=== PATIENT | female | born 1940 | race Caucasian/White ===

== ENCOUNTER 2016-06-09 09:48 | Inpatient (IN) | payer OTHER ==
--- NOTE | 2016-06-09 10:41 | PROVIDER DOCUMENTATION ---
HPI-Abdominal Pain/GI Problem - General Chief Complaint: Rectal Bleeding Stated Complaint: GI COMPLAINT Time Seen by Provider: 06/09/16 10:14 Source: patient, family () Allergies/Adverse Reactions: Patient Allergies Allergy/AdvReac Type Severity Reaction Status Date / Time meperidine HCl * Allergy "uncooperat Verified 06/09/16 10:07 [From Demerol] deborah" Home Medications: Amitriptyline [Elavil] 50 mg PO HS 06/09/16 Aspirin [Aspirin EC] 81 mg PO DAILY 06/09/16 Cyclobenzaprine [Flexeril] 10 mg PO QHS 06/09/16 Donepezil [Aricept] 10 mg PO DAILY 06/09/16 Estrogens, Conjugated [Premarin] 1.25 mg PO DAILY 06/09/16 Iron Carbonyl/Vit C/Vit B12/FA [Icar-C Plus] 1 each PO DAILY 06/09/16 Levothyroxine Sodium 25 mcg PO DAILY 06/09/16 Losartan [Cozaar] 50 mg PO DAILY 06/09/16 Memantine HCl [Namenda Xr] 28 mg PO DAILY 06/09/16 Metoprolol Succinate 50 mg PO DAILY 06/09/16 Potassium Chloride [Klor-Con M20] 20 meq PO BID 06/09/16 Triamterene/Hctz [Maxzide 75/50] 0.5 each PO DAILY 06/09/16 Warfarin Sodium 5 mg PO DIRECTED 06/09/16 Warfarin Sodium 7.5 mg PO DIRECTED 06/09/16 - History of Present Illness-ABD Nature of Presenting Problems: Pt is 76 y/o F presents to the ED with black tarry stool. Pt states the change in stool started yesterday. Pt states she has not had stool like this in years and she states the stool were due to bleeding ulcers. Pt denies F. Pt states having N but no V or D. Pt's states Pt being constipated and taking some Milk of Mag yesterday. Abdominal Pain Onset Location: reports: generalized abdomen Pain Radiation: reports: no radiation Quality of Pain: reports: aching Severity in ED: reports: mild Onset/Duration: reports: 24 hours ago Timing: reports: still present, intermittent Activities at Onset: reports: light activity Exposure to sick contacts?: No Modifying Factors: improves with: nothing Associated Symptoms: reports: constipation, headaches, loss of appetite, nausea , weakness. denies: anxiety, arm pain, back/neck pain, chest pain, cough, diaphoresis, diarrhea, dizziness, EENT symptoms, fatigue, fever/chills, genitourinary problems, heartburn, joint pain, malaise, muscle aches, sinus congestion/drainage, rash, seizure, shortness of breath, sensory/motor loss, pain with inspiration, swelling/mass in abdomen, syncope, vomiting, trouble walking, other Last BM: this morning Dark Stools Present?: reports: black, tarry Rectal Bleeding: reports: other (unsure) Rectal Pain: reports: none Emesis Description: reports: none Bruising or Bleeding Gums?: No Similar Symptoms Previously?: Yes Recently seen or treated by another doctor?: No Review of Systems - Adult - REVIEW OF SYSTEMS - ADULT Constitutional: denies: chills, fever Eyes: denies: decreased vision, blurred vision, double vision Ears, Nose, Mouth & Throat: denies: ear pain, nose pain, throat pain Cardiovascular: denies: chest pain, heart murmur, irregular heart rate Respiratory: denies: cough, shortness of breath, wheezing Gastrointestinal: reports: abdominal pain (generalized), constipation, nausea. denies: diarrhea, vomiting Genitourinary: denies: dysuria, hematuria Musculoskeletal: denies: bone pain, joint pain, neck pain Integumentary: denies: hives, itching Neurological: reports: headache/migraines (HORTA). denies: dizziness/vertigo Psychiatric: reports: no symptoms reported Endocrine: reports: no symptoms reported Hematologic/Lymphatic: reports: no symptoms reported Allergic/Immunologic: reports: no symptoms reported All Other Systems: Reviewed and Negative Past History - Adult - PAST MEDICAL HISTORY-ADULT Review of Records: reports: Nursing Assessment Review, Medications Reviewed, Social history reviewed & non-contributory. Major Childhood Illnesses: reports: denies history Cardiovascular: reports: A-Fib, HTN Respiratory: reports: denies history Gastrointestinal: reports: denies history Obstetrical/Gynecological: reports: denies history Genitourinary: reports: denies history Musculoskeletal: reports: denies history Neurological: reports: denies history Endocrine/Immune: reports: thyroid disorder Other Conditions: reports: denies history - PRIOR SURGERIES/PROCEDURES Surgical/Procedure History: reports: CABG, hysterectomy, , tonsillectomy, hernia repair - IMMUNIZATION STATUS Childhood Immunizations: See Nurse Assessment Flu Vaccine: See Nurse Assessment - FAMILY HISTORY Family History: reviewed, not pertinent - SOCIAL HISTORY Smoking: quit greater than 1 year, cigarettes Provider spent 3-5 mins advising pt. on dangers of tobacco.: Discussed manners to quit use, and f/u contacts for add'l counseling. Substance Use: alcohol Alcohol Use Frequency: rarely Number of drinks per typical drinking period:: 2 drinks Living Situation: family Physical Exam-General - PHYSICAL EXAM-ADULT Initial Vital Signs Reviewed: Yes - CONSTITUTIONAL General Appearance: appears well, alert, no apparent distress - EYES Eyes: PERRL/EOMI, pink conjunctivae - HEAD, EARS, NOSE, MOUTH & THROAT HENMT: normocephalic/atraumatic, normal ENT inspection. negative: moist mucous membranes (dry) - NECK Neck: non-tender, full range of motion, supple, normal inspection - RESPIRATORY Respiratory: chest non-tender, lungs clear, normal breath sounds - CARDIOVASCULAR Cardiovascular: normal peripheral pulses, regular rate, rhythm, no edema - GASTROINTESTINAL (ABDOMEN) Abdominal Exam: normal bowel sounds, non tender, soft - LYMPHATIC Lymphatic: no adenopathy - MUSCULOSKELETAL Back Exam: normal inspection, no CVA tenderness, no vertebral tenderness Extremity: normal range of motion, non-tender, normal gait - SKIN Integumentary: normal color, normal turgor, warm/dry - NEUROLOGIC Neurologic: public information coordinator II-XII nml as tested, grossly normal, no motor/sensory deficits - PSYCHIATRIC Psych/Mental Status: normal mood/affect, normal thought content, normal thought process, oriented x 3 Progress - PLAN OF CARE/RESULTS Progress/Plan/Lab Results: Orders Category Date Time Status Cardiac Monitoring DIRECTED Care 06/09/16 10:29 Active Saline Loc NOW Care 06/09/16 10:29 Active CHEST-2 VIEWS [RAD] Stat Exams 06/09/16 10:[address] ABD/PELVIS W/ IV CONT ONLY [CT] Stat Exams 06/09/16 10:32 Ordered AMYLASE [CHEM] Stat Lab 06/09/16 10:30 Uncollected CBC WITH ELECTRONIC DIFF [HEME] Stat Lab 06/09/16 10:35 Ordered CK PROFILE [SP CHEM] Stat Lab 06/09/16 10:35 Ordered COMPREHENSIVE METABOLIC PANEL [CHEM] Stat Lab 06/09/16 10:35 Ordered D-DIMER [CHEM] Stat Lab 06/09/16 10:35 Ordered LIPASE [CHEM] Stat Lab 06/09/16 10:30 Uncollected MAGNESIUM [CHEM] Stat Lab 06/09/16 10:35 Ordered PRO B-NATRIURETIC PEPTIDE Stat Lab 06/09/16 10:29 Uncollected PROTIME WITH INR [COAG] Stat Lab 06/09/16 10:29 Uncollected PTT [COAG] Stat Lab 06/09/16 10:29 Uncollected TROPONIN T Stat Lab 06/09/16 10:29 Uncollected URINALYSIS W/POSS RFLX CULT [URINALYSIS] Stat Lab 06/09/16 10:30 Uncollected EKG [EKG] Stat Ther 06/09/16 10:29 Ordered Vital Signs - 24 hr 06/09/16 09:55 Temperature 98.2 F Pulse Rate 97 H Respiratory 18 Rate Blood Pressure 148/82 O2 Sat by Pulse 99 Oximetry Laboratory Tests 06/09/16 06/09/16 06/09/16 10:35 10:35 10:35 WBC 11.78 H RBC 4.51 Hgb 14.2 Hct 42.0 MCV 93.1 MCH 31.5 H MCHC 33.8 RDW Std Deviation 13.1 Plt Count 227 MPV 11.3 H Immature Gran % (Auto) 0.3 Neut % (Auto) 76.5 H Lymph % (Auto) 11.8 L [place] % (Auto) 10.4 H Eos % (Auto) 0.7 Baso % (Auto) 0.3 Immature Gran # (Auto) 0.03 Neut # 9.02 H Lymph # 1.39 [place] # 1.23 H Eos # 0.08 Baso # 0.03 D-Dimer 3.87 H Sodium 131 L Potassium 5.8 H Chloride 91 L Carbon Dioxide 25 Anion Gap 15 BUN 14 Creatinine 1.1 H Estimated GFR/1.73 m2 49 BUN/Creatinine Ratio 13 Glucose 116 H Calculated Osmolality 264 Calcium 9.4 Magnesium 2.5 Total Bilirubin 0.43 AST 45 H ALT 22 Alkaline Phosphatase 62 Creatine Kinase 60 Troponin T [id number]-Grkjzruxxjt Pept Total Protein 7.6 Albumin 3.8 Globulin 3.8 Albumin/Globulin Ratio 1.0 Amylase 14 L Lipase 17 06/09/16 06/09/16 10:35 10:35 WBC RBC Hgb Hct MCV MCH MCHC RDW Std Deviation Plt Count MPV Immature Gran % (Auto) Neut % (Auto) Lymph % (Auto) [place] % (Auto) Eos % (Auto) Baso % (Auto) Immature Gran # (Auto) Neut # Lymph # [place] # Eos # Baso # D-Dimer Sodium Potassium Chloride Carbon Dioxide Anion Gap BUN Creatinine Estimated GFR/1.73 m2 BUN/Creatinine Ratio Glucose Calculated Osmolality Calcium Magnesium Total Bilirubin AST ALT Alkaline Phosphatase Creatine Kinase Troponin T < 0.010 [id number]-Eoticliwepv Pept 229 Total Protein Albumin Globulin Albumin/Globulin Ratio Amylase Lipase Laboratory Tests 06/09/16 06/09/16 06/09/16 10:35 10:35 10:35 WBC 11.78 H RBC 4.51 Hgb 14.2 Hct 42.0 MCV 93.1 MCH 31.5 H MCHC 33.8 RDW Std Deviation 13.1 Plt Count 227 MPV 11.3 H Immature Gran % (Auto) 0.3 Neut % (Auto) 76.5 H Lymph % (Auto) 11.8 L [place] % (Auto) 10.4 H Eos % (Auto) 0.7 Baso % (Auto) 0.3 Immature Gran # (Auto) 0.03 Neut # 9.02 H Lymph # 1.39 [place]oup # 1.23 H Eos # 0.08 Baso # 0.03 PT INR PTT (Actin FS) D-Dimer 3.87 H Sodium 131 L Potassium 5.8 H Chloride 91 L Carbon Dioxide 25 Anion Gap 15 BUN 14 Creatinine 1.1 H Estimated GFR/1.73 m2 49 BUN/Creatinine Ratio 13 Glucose 116 H Calculated Osmolality 264 Calcium 9.4 Magnesium 2.5 Total Bilirubin 0.43 AST 45 H ALT 22 Alkaline Phosphatase 62 Creatine Kinase 60 Troponin T [id number]-L-Tplhayhzzrc Pept Total Protein 7.6 Albumin 3.8 Globulin 3.8 Albumin/Globulin Ratio 1.0 Amylase 14 L Lipase 17 Urine Source Urine Color Urine Turbidity Urine pH Ur Specific [place] Urine Protein Ur Glucose (Stick) Ur Ketones (Stick) Urine Blood Urine Nitrite Urine Bilirubin Urobilinogen Dipstick Urine Leukocytes Urine WBC (Auto) Urine RBC (Auto) U Epithel Cells (Auto) Urine Bacteria (Auto) 06/09/16 06/09/16 06/09/16 10:35 10:35 10:35 WBC RBC Hgb Hct MCV MCH MCHC RDW Std Deviation Plt Count MPV Immature Gran % (Auto) Neut % (Auto) Lymph % (Auto) [place] % (Auto) Eos % (Auto) Baso % (Auto) Immature Gran # (Auto) Neut # Lymph # [place] # Eos # Baso # PT 68.5 H INR 6.34 H* PTT (Actin FS) 41.4 H D-Dimer Sodium Potassium Chloride Carbon Dioxide Anion Gap BUN Creatinine Estimated GFR/1.73 m2 BUN/Creatinine Ratio Glucose Calculated Osmolality Calcium Magnesium Total Bilirubin AST ALT Alkaline Phosphatase Creatine Kinase Troponin T < 0.010 Bli-A-Moonfubnpnf Pept 229 Total Protein Albumin Globulin Albumin/Globulin Ratio Amylase Lipase Urine Source Urine Color Urine Turbidity Urine pH Ur Specific [place] Urine Protein Ur Glucose (Stick) Ur Ketones (Stick) Urine Blood Urine Nitrite Urine Bilirubin Urobilinogen Dipstick Urine Leukocytes Urine WBC (Auto) Urine RBC (Auto) U Epithel Cells (Auto) Urine Bacteria (Auto) 06/09/16 11:50 WBC RBC Hgb Hct MCV MCH MCHC RDW Std Deviation Plt Count MPV Immature Gran % (Auto) Neut % (Auto) Lymph % (Auto) [place] % (Auto) Eos % (Auto) Baso % (Auto) Immature Gran # (Auto) Neut # Lymph # [place] # Eos # Baso # PT INR PTT (Actin FS) D-Dimer Sodium Potassium Chloride Carbon Dioxide Anion Gap BUN Creatinine Estimated GFR/1.73 m2 BUN/Creatinine Ratio Glucose Calculated Osmolality Calcium Magnesium Total Bilirubin AST ALT Alkaline Phosphatase Creatine Kinase Troponin T Gwd-H-Bjmhdqonzyo Pept Total Protein Albumin Globulin Albumin/Globulin Ratio Amylase Lipase Urine Source CLEAN CATCH Urine Color YELLOW Urine Turbidity HAZY Urine pH 8.0 Ur Specific [place] 1.013 Urine Protein TRACE A Ur Glucose (Stick) NEGATIVE Ur Ketones (Stick) NEGATIVE Urine Blood MODERATE A Urine Nitrite NEGATIVE Urine Bilirubin NEGATIVE Urobilinogen Dipstick NORMAL Urine Leukocytes SMALL A Urine WBC (Auto) <10 Urine RBC (Auto) TNTC A U Epithel Cells (Auto) <10 Urine Bacteria (Auto) 2+ - EKG 1 Time of EKG reading by physician:: 10:56 EKG Read and Signed by:: Sofía Lu EKG Interpretation (*Must complete 3 of following elements*): Normal Rate: 84 Rhythm: normal sinus rhythm Comments: normal ECG - CT/MRI 1 CT Study: Abdomen, Pelvis Impression: Abnormal CT Results: fecal impaction. distal thoracic aortic graft. Departure - Departure Time of Disposition Order: 12:12 DIAGNOSIS: Upper GI bleed, Coagulopathy Disposition: ADMITTED INPATIENT 09 Certified Medical Emergency: Emergent Condition: Stable Additional Instructions: ED Follow Up Instructions: You have been treated by a care provider in the Emergency Department. These instructions are being provided to you so you can have an understanding of how to care for yourself upon discharge. Upon discharge from the Emergency Department, you are responsible for making arrangements for follow-up care by a physician of your choice. Take all prescribed medications as directed. Return to the Emergency Department immediately for any new or worsening symptoms. You may call the Physician Referral phone number at [phone] to obtain a list of Physicians who are taking new patients. Referrals: Sandra Hendricks MD [Primary Care Provider] - Attestation - Scribe Verification/Attestation Scribe:: Kathy Hernandez Acting as Scribe for:: Choco Stephenson Scribe documention review:: This chart was documented by a scribe and accurately reflects the service the provider performed and the decisions made by the provider.
[2016-06-09 10:49] LABS: MANUAL DIFF NEEDED? NO
[2016-06-09 10:52] LABS: BASO% 0.3 % (0.0-0.8); EOS# 0.08 X1000 (0.0-0.7); EOS% 0.7 % (0.0-10.0); HEMOGLOBIN 14.2 g/dL (12.0-16.0); IMM GRAN# 0.03 X1000 (0.0-0.04); IMM GRAN% 0.3 % (0.0-0.5); LYMPH# 1.39 X1000 (1.2-3.4); LYMPH% 11.8 % (20.5-51.1); MCH 31.5 PG (27-31); MCHC 33.8 g/dL (33-37); MCV 93.1 FL (81-99); MONO# 1.23 X1000 (0.11-0.59); MONO% 10.4 % (1.7-9.3); MPV 11.3 FL (7.4-10.4); NEUT% 76.5 % (42.2-75.2); PLT 227 X1000 (130-400); RBC 4.51 XMIL (4.2-5.4)
[2016-06-09 11:22] LABS: ALBUMIN 3.8 g/dL (3.5-5.0); CALCIUM 9.4 mg/dL (8.8-10.2); MAGNESIUM 2.5 mg/dL (1.5-2.7); POTASSIUM 5.8 mmol/L (3.5-5.1); TOTAL BILIRUBIN 0.43 mg/dL (0.20-1.00); TOTAL PROTEIN 7.6 g/dL (6.3-8.3)
[2016-06-09 11:36] LABS: PROTIME 68.5 Seconds (9.2-11.7)
[2016-06-09 11:37] LABS: INR 6.34; PTT 41.4 Seconds (22.0-36.0)
[2016-06-09 12:03] LABS: URINE MICRO REVIEW NEEDED? NO; URINE SOURCE CLEAN CATCH
[2016-06-09 12:07] LABS: BILIRUBIN URINE NEGATIVE (NEGATIVE); BLOOD URINE MODERATE (NEGATIVE); COLOR YELLOW; GLUCOSE URINE NEGATIVE (NEGATIVE); LEUKOCYTES URINE SMALL (NEGATIVE); NITRITE URINE NEGATIVE (NEGATIVE); PROTEIN URINE TRACE mg/dL (NEGATIVE); SP GRAVITY URINE 1.013; TURBIDITY URINE HAZY (CLEAR); UROBILINOGEN URINE NORMAL (NORMAL)
[2016-06-09 12:08] LABS: UR EPITHELIAL CELLS <10 /HPF (<10); URINE BACTERIA 2+ /HPF; URINE CULTURE NEEDED? YES; URINE RBC TNTC /HPF (<10); URINE WBC <10 /HPF (<10)
[2016-06-09] MEDS ORDERED: NS 1,000 ML IV ONE (12:14)
[2016-06-09] MEDS ORDERED: PROTONIX IV ONE (12:14)
[2016-06-09] MEDS ORDERED: SODIUM CHLORIDE 0.9% INJ ONE (12:14)
[2016-06-09] MEDS ORDERED: ZOFRAN IV PRN (13:37)
[2016-06-09] MEDS ORDERED: TYLENOL PO PRN (13:37)
[2016-06-09] MEDS: NS 1,000 ML IV SCH (15:19)
--- NOTE | 2016-06-09 15:42 | Diag Imaging Result Document ---
PROCEDURE NAME: ABDOMEN/PELVIS W/O CONTRAST - 06/09/2016 CT UROGRAM WITHOUT CONTRAST: FINDINGS: The visualized portions of the lungs are unremarkable. There is a graft in the visible portions of the thoracic aorta which terminates above the level of the celiac artery. The graft is directly posterior to the distal esophagus. The pancreas is unremarkable. The kidneys are lobulated and the left somewhat atrophic in appearance. There is no evidence of hydronephrosis, mass or stones. The appendix is normal in appearance. The bladder is somewhat distended. There is a large amount of stool in the rectum. There is degenerative change in the symphysis pubis. There has been fusion in the lower lumbar spine. IMPRESSION: 1. Thoracic aortic graft. 2. Fecal impaction. 3. There may be some degree of urinary retention in the bladder as well.
--- NOTE | 2016-06-09 17:05 | HISTORY AND PHYSICAL ---
HISTORY OF PRESENT ILLNESS: This is a 76-year-old patient who has a family practice physician who has past medical history of chronic atrial fibrillation. She has had ablation procedure. She has a median sternotomy scar, so I am assuming she has had bypass, although she was not sure about that. She has had stomach surgery years ago, pyeloplasty with vagotomy, she has been treated for hypertension and hypercholesterolemia. She says she has been told she had some mild dementia. who was at the bedside. I can see in the past that she has had a carotid study done in February 2016, which was unremarkable. She had a knee x-ray in January, osteoarthritis, synovial osteochondromatosis. She had a head CT done in October without contrast, chronic-appearing white matter changes, but no evidence of acute pathology. She had a bone scan done in 06/05/2015, increased activity in multiple joints, nothing specific. 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 Echocardiogram done in August 2014 showed normal left ventricle, ejection fraction 55-60%. No valvular dysfunction. There is a central mitral regurgitation, anterior directed raising a concern for mild degree of prolapse of the posterior leaflet. Otherwise, unremarkable. She had a myocardial perfusion scan done in November 2012. Normal homogeneous uptake of radiotracer. No evidence of ischemia or infarction. Ejection fraction at that time calculated at 68%. She had a pulmonary function test done in November 2012. FVC was within normal range. Diffusion capacity within normal range. No post bronchial dilatation performed on study and noted to be good steady. She presents today. She had a dark stool last night I believe and then another one early this morning and then some loose dark stool described as black. She had a little bit of cramping in the left lower quadrant, but she has not had abdominal pain. She has not had fever or chills. No change in her diet recently. No weight loss or gain. She has felt normal and she did in questioning describe a little more reflux and burning sensation in the epigastrium and up into her esophagus some over the last week. LABORATORY: Her ProTime was elevated. She is on chronic Coumadin for her atrial fibrillation. PT was 68, INR was 6.34, PTT was 41. D-dimer 3.87. FAMILY HISTORY: Both her mother and father had apparently abdominal aortic aneurysms. I did not appreciate any pulsatile mass on exam. SOCIAL HISTORY: She quit smoking 10 years ago. Negative for alcohol. She is , four children. Used to live in [place]. was at the bedside. REVIEW OF SYSTEMS: General: No weight gain or loss. No fever or chills. HEENT: Unremarkable. Respiratory: No increased work of breathing or dyspnea. Cardiovascular: No chest pain or tachy palpitation. GI/: As above. No gross hematuria. No dysuria. Musculoskeletal/Neurologic: No focal changes. Endocrinologic/Hematologic: She does take thyroid supplement, but she is not aware of any problems in the past. PHYSICAL EXAMINATION: VITAL SIGNS: Alert and oriented, pleasant, oriented x3. Temperature is 98.2 degrees, pulse 97, respirations 18, blood pressure 148/82. HEENT: Pupils were equal and round. CVP less than 6 cm. Conjunctivae pink, good color, no pallor. Gingiva with good color, no pallor. LUNGS: Clear in all lung marie. CARDIOVASCULAR: Regular rhythm and rate without murmur or S3. ABDOMEN: Soft, nontender. No tenderness in any of the quadrants. No epigastric tenderness. No hepatojugular reflux. No hepatosplenomegaly. EXTREMITIES: Without clubbing, cyanosis, or edema. Weight is 190 pounds. She is 5 feet tall. LABORATORY: White count 11,780, hematocrit 42, platelet count 227,000. Neutrophils 76%. Sodium 131, potassium 5.8, chloride 91, bicarb 25, BUN 14, creatinine 1.1, blood sugar 116, magnesium 2.5, amylase was 14, lipase 17. Urine: Too numerous to count red blood cells. This was a clean- catch and I believe 2+ bacteria. LIST OF HOME MEDICINES: Elavil 50 mg at bedtime, aspirin 81 mg a day, Flexeril 10 mg at bedtime, Aricept 10 mg daily, Premarin 1.25 mg that is conjugated daily, iron carbonyl 1 daily, levothyroxine 25 mcg a day, Cozaar 50 mg a day, Namenda XL 20 mg p.o. daily, metoprolol succinate 50 mg daily, Klor-Con M20, 20 mEq b.i.d., Maxzide she takes half a tablet, 75-50 half a tablet daily, and Coumadin she takes 5 mg alternating with 7.5 over the course of the week. Apparently just had her ProTime checked a month ago. It was about 3.1 by 's memory. ASSESSMENT AND PLAN: 1. Gastrointestinal bleed. Suspect upper by the nature of the color, but she is taking iron as well. She has not had a colonoscopy a long time. She has a history of a stomach surgery for her ulcer that was back in the 60s. I think it sounds like a pyloroplasty and vagotomy. We will put her on a proton pump inhibitor. We are going to obviously hold the Coumadin. I will give her 1 unit of fresh frozen and consult gastrointestinal, Dr. Way to see about esophagogastroduodenoscopy and colonoscopy on her. We will also put her on some Carafate. 2. Atrial fibrillation. Rate is controlled. Continue her present medications, except holding the Coumadin. 3. Cognitive decline, early dementia has been diagnosed. Continue her current medicines. 4. History of hypertension, we will monitor that. 5. Family history of abdominal aortic aneurysm. I do not see any evidence of aortic aneurysm, but we will get an abdominal ultrasound and look at that while she is here. 6. Lastly, history of hypothyroidism. Check T4 and thyroid stimulating hormones. Continue her levothyroxine 25 mcg daily.
--- NOTE | 2016-06-09 17:35 | Diag Imaging Result Document ---
PROCEDURE NAME: CHEST-2 VIEWS - 06/09/2016 TWO VIEWS OF THE CHEST: FINDINGS: There is a thoracic aortic graft extending from the ascending through the lower portion of the descending thoracic aorta. There are sternotomy wires. There are anchors in the humeral head. IMPRESSION: Graft in the thoracic aorta, otherwise no significant change since 12/10/2011.
[2016-06-09] MEDS: CARAFATE LIQUID PO SCH (23:27)
[2016-06-09] MEDS: ELAVIL PO SCH (23:27)
[2016-06-09] MEDS: FLEXERIL PO SCH (23:27)
[2016-06-10] MEDS: CARAFATE LIQUID PO SCH ×5 (04:04→21:15)
[2016-06-10] MEDS: PROTONIX IV SCH ×2 (04:04→14:43)
--- NOTE | 2016-06-10 05:58 | CONSULTATION ---
DATE OF CONSULTATION: 06/09/2016 REFERRING PHYSICIAN: Jose Sepulveda MD. PRIMARY CARE PHYSICIAN: Sandra Hendricks MD. PRIMARY ELECTRIC TRUCKER: Jorge Villalobos MD. INDICATION FOR CONSULTATION: 1. Melena. 2. Coumadin toxicity. 3. Left lower quadrant pain. HISTORY OF PRESENT ILLNESS: The patient is a 76-year-old white female who is on Coumadin for chronic atrial fibrillation. She has a history of peptic ulcer disease and is status post a pyloroplasty with vagotomy. She states that she was in her usual state of health until approximately 1 week ago. She developed increasing heartburn and indigestion. She noted some mild epigastric discomfort but dismissed it as being benign. Approximately 24 hours prior to admission, she developed dark stools and left lower quadrant cramping. She presented to the emergency room for evaluation and was found to have an INR of 6.34 with melenic stools. The patient is also currently on iron for anemia. She states that she has had slightly darker stools since she began iron therapy but her stools became black prior to admission, which is new. We were asked to evaluate the patient. Of note, she reports that her last colonoscopy was more than 5 years ago. According to the consultation, we were asked to consider an EGD and colonoscopy. PAST MEDICAL HISTORY: 1. Atrial fibrillation. 2. Peptic ulcer disease. 3. Hypertension. 4. Hyperlipidemia. 5. Possible dementia. 6. Osteoarthritis. 7. Osteochondromatosis. 8. Inflammatory arthritis. 9. Mitral regurgitation. 10. Obesity. PAST SURGICAL HISTORY: 1. There is a sternotomy scar present, suggesting that she has had coronary artery bypass surgery. 2. Gastric surgery with a pyloroplasty and a vagotomy. SOCIAL HISTORY: The patient denies alcohol use. She previously smoked 2 packs per day for approximately 50 years. She stopped smoking 10 years ago. She is with 4 adult children. There is no history of recreational drug use. FAMILY HISTORY: Positive for abdominal aortic aneurysm. She denies a history of colon cancer. REVIEW OF SYSTEMS: Remarkable for the melenic stools. She denies other symptoms at present. She notes that the abdominal cramping has resolved since admission. PHYSICAL EXAMINATION: General: On examination, she is in no acute distress. Vital Signs: Her blood pressure is 144/73, pulse of 86, respirations 17, temperature of 98 degrees. HEENT: Negative for jaundice. Her conjunctivae are pale. Her oropharyngeal mucosal membranes are unremarkable. Pulmonary Examination: Lungs are clear. Chest: She does have a sternotomy scar on the anterior chest wall. Cardiovascular Examination: Reveals regular rate and rhythm with no gallops, murmurs, or rubs. Abdominal Examination: Reveals normoactive bowel sounds. The abdomen is soft and nontender with central adiposity. Extremities: Bilaterally are negative for cyanosis, clubbing, or edema. OBJECTIVE DATA: Reveals a hemoglobin of 14.2, with a hematocrit of 42, and a white count of 11.78. Her platelet count is 227,000. Her PT is 68.5, with an INR of 6.34, and a PTT of 41.4. She has a D-dimer of 3.87. Sodium is 131, potassium 5.8, chloride 91, CO2 of 25, BUN 14, creatinine 1.1, with a glucose of 116. Calcium is 9.4. Magnesium 2.5. Total bilirubin 0.43, AST 45, ALT 22, alkaline phosphatase 62, total protein 7.6, and albumin 3.8. Her amylase is 14 with a lipase of 17. Her troponin and CK levels were normal. She has a urinalysis that has less than 10 white blood cells but too numerous to count red blood cells present. On CT scan, she was noted to have a graft in the thoracic aorta that terminates at the level of the celiac artery. It is directly posterior to the distal esophagus. Her pancreas was normal. Her kidneys are lobulated, somewhat atrophic in appearance, but there were no stones. She does have a large amount of stool in the rectum, consistent with a fecal impaction. She has some degree of urinary retention in the bladder. IMPRESSION: 1. Melena. 2. Left lower quadrant pain. 3. Fecal impaction. 4. Coumadin toxicity. 5. Gastroesophageal reflux disease. RECOMMENDATION: 1. I agree with holding the Coumadin. 2. Continue Protonix 40 mg IV q.12 hours. 3. Continue Carafate 1 g 4 times a day. 4. She will need a bowel program to treat the constipation and address the fecal impaction. 5. I will discuss the EGD and colonoscopy with Dr. Jorge Villalobos upon his return June 11. 6. Her INR will need to be less than 1.5 in order to proceed with endoscopy.
[2016-06-10] MEDS: NS 1,000 ML IV SCH ×4 (06:43→21:17)
[2016-06-10 06:56] LABS: INR 4.85; PROTIME 52.2 Seconds (9.2-11.7)
[2016-06-10 07:16] LABS: HEMATOCRIT 37.4 % (37.0-47.0); HEMOGLOBIN 12.1 g/dL (12.0-16.0); MCH 31.3 PG (27-31); MCHC 32.4 g/dL (33-37); MCV 96.9 FL (81-99); MPV 11.1 FL (7.4-10.4); RBC 3.86 XMIL (4.2-5.4)
[2016-06-10 07:24] LABS: AGAP 11; ALBUMIN 3.5 g/dL (3.5-5.0); ALKALINE PHOSPHATASE 64 U/L (32-104); BUN 10 mg/dL (8-22); CALCIUM 8.8 mg/dL (8.8-10.2); CHLORIDE 97 mmol/L (98-107); COSMO 271; GOT 18 U/L (10-30); GPT 17 U/L (10-36); MAGNESIUM 2.2 mg/dL (1.5-2.7); POTASSIUM 3.2 mmol/L (3.5-5.1); SODIUM 136 mmol/L (136-145); TCO2 28 mmol/L (25-35); TOTAL BILIRUBIN 0.31 mg/dL (0.20-1.00); TOTAL PROTEIN 6.4 g/dL (6.3-8.3)
--- NOTE | 2016-06-10 08:11 | Diag Imaging Result Document ---
PROCEDURE NAME: US ABDOMEN-COMPLETE - 06/10/2016 ABDOMINAL ULTRASOUND: FINDINGS: The pancreas is somewhat inhomogeneous in appearance where it is visualized at all. This is probably largely a function of the poor sonographic window, however. The aorta and inferior vena cava are normal in appearance where they are visible. There is antegrade flow in the portal vein. There is no evidence of biliary dilatation and the common bile duct measures 4 mm. The liver is slightly hyperechoic which is probably due to fatty change. The gallbladder is clear and nontender. There are small cysts in both kidneys. There is no evidence of hydronephrosis. The spleen is not enlarged. There are no abnormal fluid collections. IMPRESSION: No evidence of acute disease.
--- NOTE | 2016-06-10 08:34 | EKG Report ---
Test Performed on : 06/09/2016 10:56:16 AM Test Reason : Chest Pain Blood Pressure : / mmHG Vent. Rate : 084 BPM Atrial Rate : 084 BPM P-R Int : 164 ms QRS Dur : 086 ms QT Int : 396 ms P-R-T Axes : 014 -06 046 degrees QTc Int : 467 ms Normal sinus rhythm. Normal ECG When compared with ECG of 10-OCT-2009 13:23, No significant change was found Unconfirmed Result
[2016-06-10] MEDS: TOPROL XL PO SCH (08:41)
[2016-06-10] MEDS: MAXZIDE 75/50 PO SCH (08:41)
[2016-06-10] MEDS: COZAAR PO SCH (08:41)
[2016-06-10] MEDS: PREMARIN PO SCH (08:41)
[2016-06-10] MEDS: MIRALAX PO SCH ×3 (08:41→21:16)
[2016-06-10] MEDS: ICAR-C PLUS PO SCH (08:41)
[2016-06-10] MEDS: ARICEPT PO SCH (08:42)
[2016-06-10] MEDS: SYNTHROID PO SCH (08:42)
[2016-06-10] MEDS: NAMENDA XR PO SCH (08:42)
[2016-06-10] MEDS: SODIUM CHLORIDE 0.9% INJ SCH (14:43)
--- NOTE | 2016-06-10 15:14 | PROGRESS NOTE ---
DATE: 06/10/2016 SUBJECTIVE: Patient is feeling fine. Denies any more episodes of black stools. Actually, she is constipated. No vomiting blood. No blood in the stools. OBJECTIVE: Vital Signs: Temperature 97.7 degrees, heart rate 76, respiratory rate 16, blood pressure 141/66, O2 saturation 97% on room air. General Examination: This is home 76-year-old female lying in bed, in no acute distress. HEENT: Head is normocephalic, atraumatic. Anicteric sclerae and pale conjunctivae. Mucous membranes moist. Neck: Supple. No JVD noted. No carotid bruits. No lymphadenopathy. No thyromegaly. Cardiovascular: S1, S2 heard. No murmurs, gallops, or rubs. Regular rate and rhythm. Respiratory: Clear bilaterally to auscultation. No work of breathing or using accessory muscles. Abdomen: Soft, nontender to palpation. Bowel sounds present. No organomegaly. Extremities: No clubbing, cyanosis, or edema. Peripheral pulses present in both legs. Neurological: Patient alert oriented x3. Able to move her extremities. Cranial nerves 2-12 grossly normal. LABORATORY DATA: White cell count 8.27, hemoglobin 12.1, hematocrit 37.4, platelets 214,000. INR 4.8, sodium 136, potassium 3.2, chloride 97, bicarbonate 28, BUN 10, creatinine 0.9. ASSESSMENT AND PLAN: 1. Gastrointestinal bleeding. The patient was admitted to hospital for having melena and also the hemoglobin has been stable so far. Patient has been evaluated by Dr. Way because her primary care Dr. Is Jorge Villalobos MD. She deferred the care to him tomorrow. At this point, we are going to continue with the same management. 2. Chronic atrial fibrillation, rate is controlled. We will continue with all home medications except anticoagulation. 3. Cognitive decline. We will continue home medications. 4. History of hypertension. We will continue checking blood pressure every 6 hours.
[2016-06-10] MEDS: ELAVIL PO SCH (21:15)
[2016-06-10] MEDS: FLEXERIL PO SCH (21:15)
[2016-06-10] MEDS: KLOR-CON PO SCH (21:15)
[2016-06-10] MEDS ORDERED: CALMOSEPTINE OINTMENT TOP PRN (21:18)
[2016-06-11] MEDS: NS 1,000 ML IV SCH ×3 (00:55→18:16)
[2016-06-11] MEDS: PROTONIX IV SCH ×2 (01:48→15:00)
[2016-06-11] MEDS: CARAFATE LIQUID PO SCH ×4 (01:48→21:51)
[2016-06-11] MEDS: SODIUM CHLORIDE 0.9% INJ SCH (01:48)
--- NOTE | 2016-06-11 08:32 | Diag Imaging Result Document ---
PROCEDURE NAME: KUB ABDOMEN - 06/11/2016 X-RAY ABDOMEN, 06/11/2016: COMPARISON: CT 06/09/2016. FINDINGS: Portable technique was used. Detail is poor. There is probably persistent rectal stool impaction with a 6.5-cm stool ball. There is mild gas dilation of the small and large bowel suggesting ileus. No free air. IMPRESSION: Rectal stool impaction. Small and large bowel ileus.
[2016-06-11] MEDS: PREMARIN PO SCH (08:38)
[2016-06-11] MEDS: MAXZIDE 75/50 PO SCH (08:38)
[2016-06-11] MEDS: ICAR-C PLUS PO SCH (08:38)
[2016-06-11] MEDS: NAMENDA XR PO SCH (08:38)
[2016-06-11] MEDS: KLOR-CON PO SCH ×2 (08:38→21:51)
[2016-06-11] MEDS: SYNTHROID PO SCH (08:39)
[2016-06-11] MEDS: ARICEPT PO SCH (08:39)
[2016-06-11] MEDS: TOPROL XL PO SCH (08:39)
[2016-06-11] MEDS: COZAAR PO SCH (08:39)
[2016-06-11 09:21] LABS: URINE MICRO REVIEW NEEDED? NO; URINE SOURCE CATH
[2016-06-11 09:29] LABS: BILIRUBIN URINE NEGATIVE (NEGATIVE); BLOOD URINE LARGE (NEGATIVE); COLOR STRAW; GLUCOSE URINE NEGATIVE (NEGATIVE); LEUKOCYTES URINE MODERATE (NEGATIVE); NITRITE URINE NEGATIVE (NEGATIVE); PROTEIN URINE NEGATIVE (NEGATIVE); SP GRAVITY URINE 1.007; TURBIDITY URINE HAZY (CLEAR); UROBILINOGEN URINE NORMAL (NORMAL)
[2016-06-11 09:30] LABS: UR EPITHELIAL CELLS <10 /HPF (<10); URINE BACTERIA 4+ /HPF; URINE CULTURE NEEDED? YES; URINE RBC <10 /HPF (<10); URINE WBC <10 /HPF (<10)
[2016-06-11] MEDS: MIRALAX PO SCH ×2 (10:52→21:52)
--- NOTE | 2016-06-11 14:43 | CONSULTATION ---
DATE OF CONSULTATION: 06/11/2016 Patient is seen at the request of Dr. Jose Sepulveda regarding urinary retention. The patient came to the hospital and has been unable to void and was on straight cath for awhile. Had a 1000 mL residual urine on 1 occasion. She is not diabetic. We have no obvious reason for her to have neurogenic bladder dysfunction. Having said that, CT scan, being performed showed a fairly significant fecal impaction which is the probable cause of her urinary retention in the absence of any other inciting cause. Pursuant to that, she will have her impaction addressed and then given a trial of voiding. That is our plan. Admission UA urine culture from the emergency room on 06/09/2016 showed E. coli sensitive to all antibiotics screened against. ALLERGIES: Are Demerol. MEDICATIONS: According to her MAR include Tylenol, amitriptyline, cyclobenzaprine, donepezil or Aricept, Premarin, multiple vitamin, levothyroxine, losartan, Namenda, Calmoseptine ointment, Toprol, Zofran, Protonix, MiraLAX, Klor-Con, saline IV, sucralfate and Maxzide. MEDICAL HISTORY: Significant for vasculopathy. She has had multiple cardiovascular procedures. Has high blood pressure pretty apparently. She came in with GI bleed, a consequence of Coumadin for atrial fibrillation and has tarry stools accordingly. She has a cognitive deficit of which she is interestingly aware of at some level and takes Namenda and Aricept both to assist her with that concern. She obviously has a UTI. She has urinary retention and she has fecal impaction/constipation. She has a history of an aortic aneurysm, thoracic in location managed with a stenting procedure and I think she has stents in the abdominal area as well. I did not see any history of coronary disease. There is a history of hypothyroidism. She came in I think with a history of constipation as well, GERD and presumptive history of ulcer disease for which she is being medicated right now. Her surgeries again include thoracic aortic stents and maybe abdominal aortic stents as well. She does not confess to coronary stents and she has some anemia which may be GI bleed related. Her troponins were normal on admission. I saw no other obvious surgical interventions in record review. SOCIAL HISTORY: She is a prior significant history smoker and nondrinker. No drugs. Her apparently has been with her here and is presumptively supportive of her during her admission. She is nursing home age. FAMILY HISTORY: Her mother and father had abdominal aortic aneurysms. REVIEW OF SYSTEMS: No constitutional complaints at this time. Obviously she is unhappy that she has been unable to void and now has a catheter and has no perception of fact that she has significant rectal constipation. See exam below.Head and Neck: No complaints. Neurologic: Alzheimer's. GI: Melanotic stools and GI bleeding. Hematologic: Includes coagulopathy with INR around 4.5, Coumadin related. No definitive history of diabetes identified. EXAMINATION: Shows that she is stable here in the hospital. Temperature 98.2, respirations are 20. The pulse rate is 59. Toprol related bradycardia and her blood pressure was 113/51 today. O2 saturations were 100%. Head and Neck: Without lump or mass. Scar in the left region of her left carotid and/or lower neck area and midline chest from prior interventions. She may have had bypass surgery but that is uncertain because of her issue as a historian. Abdomen: Slightly rotund. There is some obesity. No pain in any location. Heart: Questionable murmur and a prior echo confirms a leaking heart valve. She has had repair with a porcine valve and she has had another replaced if I recall her history accurately so she has had surgery on both left heart valves. Pelvic: Was not done as she is sitting in stool at this time, melanotic in character. I did do a rectal and there is a fairly large mass of constipating feces within the rectal vault. Extremities: She does move all extremities symmetrically. She is alert and she is helpful as she is able but apparently has some reported Alzheimer's/senile dementia. IMPRESSIONS: She has urinary retention most likely secondary to rectal constipation and 3) she has a urinary tract infection and no other significant findings on the CT. PLAN: Would be to provide enemas until clear. Confirm that with a rectal evaluation and once she is eliminating better pull the catheter and see if she can properly evacuate. She does need to be on the antibiotics for her E. coli UTI for an appropriate duration of time and I would favor that being 10-14 days because of the urinary retention and until we are certain that she can evacuate her bladder. I can follow her as an outpatient. Obviously cystoscopy is an option for her in the office. Certainly should be done if she persists with bleeding unless she is free of all microscopic and gross hematuria. I would recommend a cystoscopy be performed in the office. I thank you for the referral.
[2016-06-11] MEDS ORDERED: GOLYTELY PO ONE (16:37)
--- NOTE | 2016-06-11 16:57 | PROGRESS NOTE ---
DATE: 06/11/2016 IDENTIFICATION: This is a patient admitted on the first by me. 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 She had median sternotomy scar I am assuming. She had bypass surgery, although she is not sure about that. She had stomach surgery years ago previously with a vagotomy. She has been treated for hypertension, hypercholesterolemia. She says she has been told she had some mild dementia. was at the bedside and said in the past she had a carotid study done February 2016 that was unremarkable. She had knee x-ray in January with osteoarthritis. At any rate, we admitted her for gastrointestinal bleeding. She was describing dark stools. She has not had a colonoscopy. Her pro time was high secondary to Coumadin, and she had atrial fib, ate controlled. She had some trouble with urinary retention, so I had to do a couple straight catheterizations; I finally put a Mcleod catheter in. An abdominal ultrasound done today with no evidence of acute disease, no evidence of abdominal aortic aneurysm. So, no abnormality. She had abdominal x-ray done today and had a rectal stool impaction, small and large bowel ileus. I asked urology to help; I appreciate Dr. Gibbs's help. She has urinary retention most likely secondary to rectal constipation, and she has urinary tract infection. No other significant findings on CT. So, we are going to try to clear out the colon and see if we can improve her urine output. PHYSICAL EXAM: General: Today, awake and alert. Vital signs: Temperature 98.2 degrees, pulse 59, respirations 20, blood pressure 113/59. HEENT: Pupils are equal, round and reactive. Lungs: Clear. Cardiovascular exam: Regular rhythm and rate without murmur or S3. Abdomen: Soft. Skin: Warm and dry. : Urine output over 3 L. LAB: Lab reviewed from yesterday: Hematocrit stable at 37. Chemistries unremarkable. ASSESSMENT AND PLAN: 1. Gastrointestinal bleeding possibility. Described dark stools. Pro time was elevated. Because her doctor is Dr. Villalobos, we will defer consultation for him. No sign of significant blood loss. 2. Chronic atrial fibrillation, rate controlled. 3. Cognitive decline. 4. Hypertension. 5. Urinary retention from a rectal impaction. Her pro time today was down to 52. Review of her orders: I do not see any change.
[2016-06-11] MEDS: ELAVIL PO SCH (21:51)
[2016-06-12] MEDS: CARAFATE LIQUID PO SCH ×4 (02:02→22:36)
[2016-06-12 05:29] LABS: MANUAL DIFF NEEDED? NO
[2016-06-12 05:33] LABS: BASO% 0.2 % (0.0-0.8); EOS# 0.15 X1000 (0.0-0.7); EOS% 1.4 % (0.0-10.0); HEMATOCRIT 35.9 % (37.0-47.0); HEMOGLOBIN 11.7 g/dL (12.0-16.0); LYMPH# 1.35 X1000 (1.2-3.4); LYMPH% 12.5 % (20.5-51.1); MCH 30.5 PG (27-31); MCHC 32.6 g/dL (33-37); MCV 93.7 FL (81-99); MONO# 0.97 X1000 (0.11-0.59); MPV 10.8 FL (7.4-10.4); NEUT% 76.9 % (42.2-75.2); PLT 231 X1000 (130-400); RBC 3.83 XMIL (4.2-5.4)
[2016-06-12 05:45] LABS: INR 4.35; PROTIME 46.8 Seconds (9.2-11.7)
[2016-06-12 06:05] LABS: AGAP 10; ALKALINE PHOSPHATASE 61 U/L (32-104); BUN 5 mg/dL (8-22); CALCIUM 8.3 mg/dL (8.8-10.2); CHLORIDE 97 mmol/L (98-107); COSMO 271; GOT 14 U/L (10-30); GPT 11 U/L (10-36); POTASSIUM 3.2 mmol/L (3.5-5.1); SODIUM 137 mmol/L (136-145); TCO2 30 mmol/L (25-35); TOTAL BILIRUBIN 0.35 mg/dL (0.20-1.00); TOTAL PROTEIN 5.3 g/dL (6.3-8.3)
--- NOTE | 2016-06-12 07:58 | CONSULTATION ---
DATE OF CONSULTATION: 06/11/2016 REASON FOR CONSULTATION: Melena, Coumadin toxicity and impaction. HISTORY OF PRESENT ILLNESS: This is a pleasant 76-year-old lady who is on Coumadin for atrial fibrillation. She also has a history of peptic ulcer with pyloroplasty and vagotomy. For the last 1 week, she is having increasing dyspeptic symptoms and 2 days ago, she noticed dark stools with some left lower quadrant cramping. Her INR 6.34. When she came in, she has not had any stool. In fact, she is impacted. They tried to give 2 tap water enemas with no results. The last EGD and colonoscopy was about 5 years ago. PAST MEDICAL HISTORY: Peptic ulcer disease, hypertension, hyperlipidemia, osteoarthritis, mitral regurgitation and atrial fibrillation. PAST SURGICAL HISTORY: Sternotomy for CABG, gastric surgery. SOCIAL: She does not drink. She used to smoke, but stopped about 10 years ago. She is , 4 children. No drug use. FAMILY HISTORY: Positive for abdominal aortic aneurysm. No history of inflammatory bowel disease or colon cancer. REVIEW OF SYSTEMS: Negative other than HPI. PHYSICAL EXAMINATION: General: Reveals this pleasant lady in no acute distress. Vital signs: Stable. Eyes: There is conjunctival pallor, mild present. Neck: Supple. Trachea midline. Heart and Lungs: Normal. Has a previous sternotomy scar. Abdomen: Previous surgical scar. Bowel sounds present and normal. She is mildly tender in the left lower quadrant. Extremities: Unremarkable. LABORATORY DATA: Hemoglobin and hematocrit are normal. Platelet count is 227. PT is 68 with INR of 6.34. All the other labs are within normal limits. She did have an aortic graft on the CT that appears normal. IMPRESSION: 1. Coumadin toxicity. 2. Atrial fibrillation. 3. History of melenic stools with a normal H and H. 4. Impaction. 5. History of vagotomy and antrectomy with pyloroplasty. RECOMMENDATION: Will give her Colyte and will do EGD and colonoscopy tomorrow. Her GI bleed does not appear to be significant with a normal blood count. Will check the PT, PTT in the morning and we will give vitamin K if needed.
[2016-06-12] MEDS: NS 1,000 ML IV SCH (10:27)
[2016-06-12] MEDS ORDERED: VITAMIN K 10 MG in NS 50 ML IV ONE (12:48)
[2016-06-12] MEDS: PREMARIN PO SCH (13:28)
[2016-06-12] MEDS: ARICEPT PO SCH (13:28)
[2016-06-12] MEDS: KLOR-CON PO SCH ×2 (13:28→22:35)
[2016-06-12] MEDS: TOPROL XL PO SCH (13:28)
[2016-06-12] MEDS: COZAAR PO SCH (13:28)
[2016-06-12] MEDS: NAMENDA XR PO SCH (13:29)
[2016-06-12] MEDS: ICAR-C PLUS PO SCH (13:29)
[2016-06-12] MEDS: PROTONIX IV SCH ×2 (13:29→22:35)
[2016-06-12] MEDS: SODIUM CHLORIDE 0.9% INJ SCH ×2 (13:29→22:35)
[2016-06-12] MEDS: MIRALAX PO SCH ×2 (13:29→22:35)
[2016-06-12] MEDS: MAXZIDE 75/50 PO SCH (13:29)
[2016-06-12] MEDS: SYNTHROID PO SCH (13:30)
--- NOTE | 2016-06-12 15:55 | PROGRESS NOTE ---
DATE: 06/12/2016 SUBJECTIVE: Ms. Pham had a pretty good uneventful night. Was taken her prep for her procedures, colonoscopy and EGD this morning. No complaints of bleeding. No shortness of breath. No pain. No abdominal pain. OBJECTIVE: Vital signs: Temperature 98.2 degrees, pulse 72, respirations 18, blood pressure 120/70. HEENT: Pupils are equal, round. Lungs: Clear in all lung marie. Cardiovascular: Regular rhythm and rate without murmur or S3. Abdomen: Soft. Skin: Warm and dry. Intake and output: Urine output from yesterday was over 3 L. LAB: Reviewed from today. White count 10,770, hematocrit 35, platelet count 231,000. Sodium 137, potassium 3.2, chloride 97, BUN 5, creatinine 0.8, albumin 3.0. ASSESSMENT AND PLAN: 1. Gastrointestinal bleeding possibility so prepping for a colonoscopy and EGD today. 2. Chronic atrial fibrillation, rate controlled. 3. Cognitive decline. Aware. No real change. 4. Hypertension. 5. Urinary retention I believe from rectal impaction. She is voiding. I appreciate Dr. Gibbs's help. We will see what the endoscopy procedure find. I have looked over her orders and I do not see any change at this time this.
--- NOTE | 2016-06-12 16:15 | PROGRESS NOTE ---
DATE: 06/12/2016 SUBJECTIVE: Patient is currently current resting in bed. Initially she was scheduled for EGD and colonoscopy today from for GI bleed but her INR was still high at 4.35 and the procedure was canceled. OBJECTIVE: Vitals: Temperature of 98.2 degrees, pulse of 72, respiratory 18, blood pressure 120/70, saturating 96% on room air. General Appearance: Moderately built, mildly obese, lying in bed, in no acute distress. HEENT: Mild pallor. No icterus. Pupils equal, react to light. Neck: Supple. Abdomen: Obese, soft, nontender, nondistended. Bowel sounds. No guarding. Extremities: No cyanosis, clubbing. Neurologic: She is alert, awake, oriented. LABS: Hemoglobin and hematocrit is 11.7, 35.9, white count 10.7, platelet count of 231,000. PTT of 46.8, INR 4.35. Sodium 137, potassium 3.2, chloride 97, bicarb of 30, anion gap of 10. BUN of 5, creatinine of 0.8, glucose of 94, calcium is 8.3, total bilirubin is 0.35. AST 14, ALT 11, alkaline phosphatase 61, total protein 5.3, albumin of 3. Amylase of 14, lipase of 17. Abdominal ultrasound done on 06/10/2016 showed no evidence of any acute disease. Abdominal pelvic CT scan done on 06/09/2016 which showed thoracic aortic graft, fecal impaction and some degree of urinary retention in the urinary bladder as well. IMPRESSION AND PLAN: 1. Melena in the setting of coagulopathy. We will need to correct her INR and once this is less than 1.5 will pursue EGD and colonoscopy. The patient has never had a colonoscopy in the past and in the interim, we will continue on Protonix. 2. Anemia. Will keep a close eye on hemoglobin and hematocrit. 3. Chronic atrial fibrillation. Rate controlled. Was on Coumadin being managed by Dr. Leesa Flores as an outpatient. 4. Hypertension. Positive Urine culture- management per Primary care team. 5. History of aortic valve replacement with pig valve on Coumadin. Being managed by Dr. Landers. 6. Rectal impaction and constipation. She will continue on MiraLAX for that. 7. We will tentatively schedule for EGD and colonoscopy tomorrow if her INR is less than 1.5. The above was discussed with the patient and family and all questions answered. [facility]
[2016-06-12] MEDS: ELAVIL PO SCH (22:36)
[2016-06-13] MEDS: NS 1,000 ML IV SCH ×3 (01:30→23:50)
[2016-06-13] MEDS: CARAFATE LIQUID PO SCH ×4 (01:30→21:51)
[2016-06-13 06:12] LABS: INR 1.21; PROTIME 12.9 Seconds (9.2-11.7)
[2016-06-13] MEDS ORDERED: MYLICON DROPS (DOSE) MISC ONE (08:34)
[2016-06-13] MEDS ORDERED: DIPRIVAN 1% ONE (09:09)
[2016-06-13] MEDS ORDERED: FENTANYL ONE (09:10)
[2016-06-13] MEDS: SODIUM CHLORIDE 0.9% INJ SCH (10:20)
[2016-06-13] MEDS: PREMARIN PO SCH (10:21)
[2016-06-13] MEDS: NAMENDA XR PO SCH (10:21)
[2016-06-13] MEDS: PROTONIX IV SCH ×2 (10:21→21:51)
[2016-06-13] MEDS: ARICEPT PO SCH (10:22)
[2016-06-13] MEDS: ICAR-C PLUS PO SCH (10:22)
[2016-06-13] MEDS: MAXZIDE 75/50 PO SCH (10:22)
[2016-06-13] MEDS: KLOR-CON PO SCH ×2 (10:23→21:51)
[2016-06-13] MEDS: TOPROL XL PO SCH (10:24)
[2016-06-13] MEDS: COZAAR PO SCH (10:24)
[2016-06-13] MEDS: SYNTHROID PO SCH (10:33)
[2016-06-13] MEDS: MIRALAX PO SCH ×2 (10:33→21:52)
[2016-06-13] MEDS ORDERED: ANESTHESIA PB SET 88 IN 5742 ONE (12:08)
[2016-06-13] MEDS ORDERED: XYLOCAINE-MPF 2% ONE (12:08)
[2016-06-13] MEDS ORDERED: EXTENSION SET 32 IN 4522 ONE (12:08)
[2016-06-13] MEDS ORDERED: LR 1,000 ML ONE (12:09)
--- NOTE | 2016-06-13 13:32 | OPERATIVE NOTE ---
PROCEDURE DATE: 06/13/2016 TITLE OF PROCEDURE: 1. Esophagogastroscopy. 2. Ileocolonoscopy. PREOPERATIVE DIAGNOSES: 1. Melena. 2. Nausea. 3. Abdominal pain in the left lower quadrant. 4. Fecal impaction on imaging. 5. Obesity. 6. History of atrial fibrillation now on chronic Coumadin with supratherapeutic INR which was corrected; current INR is 1.2. 7. History of thoracic aortic graft. POSTOPERATIVE DIAGNOSES: 1. Grade 1 esophageal varices in the esophagus. 2. Severe esophagitis, LA grade 4 in the distal esophagus. 3. Z-line visualized at 38 cm. 4. Evidence of hiatal hernia 2 cm. 5. Mild erosive gastritis of body and antrum. Normal fundus, cardia, incisura. 6. Normal duodenal bulb and second portion. 7. Normal terminal ileum. 8. Stool throughout the colon. Fair prep. Lesion less than one 5 mm could have been missed. There is evidence of diverticulosis in the descending or sigmoid colon. One of the diverticulum had sign of inflammation and erythema suggesting possible resolving diverticulitis or diverticular bleed. 9. Internal hemorrhoid on retroflexion. 10. Stool throughout the colon. EBL: None. COMPLICATIONS: None. ANESTHESIA: Monitored anesthesia care. SPECIMENS: None. DESCRIPTION OF PROCEDURE: After informed consent, the patient explained the risks, benefits, indications, alternatives of the procedure, the patient was prepared for EGD and colonoscopy. The risks including infection, bleeding, pain, trauma to the site, perforation, were explained to the patient and family among others and they acknowledged and agreed to proceed. The patient was brought to the OR and turned to the left lateral position. A bite block was placed. After adequate monitored anesthesia care, the upper scope was introduced through the oral vestibule all the way to the second portion of the duodenum. The esophagus showed evidence of grade 1 esophageal varices in the middle and distal esophagus. Distal esophagus showed evidence of erythema, friability, erosions, ulcerations suggesting LA grade 4 reflux esophagitis. The Z-line was visualized at 38 cm. There was evidence of hiatal sac 2 cm sliding type. Evidence of gastritis in body and antrum in the form of erosions, erythema. Retroflexion in the stomach revealed normal fundus, cardia, incisura. The scope was advanced to the duodenum which showed normal duodenum, bulb and second portion. The scope was withdrawn into the stomach. The air was aspirated and scope was withdrawn. The patient was turned around. Rectal exam is performed and no masses found. Stool on the examining finger. The colonoscope was gently introduced into the anus and traversed all the way to the terminal ileum. There is evidence of brown stool throughout the colon. This was lavaged. The terminal ileum was normal. Because of the fair prep, a lesion less than 5 mm could be missed. There is evidence of diverticulosis in the descending and sigmoid of moderate degree. One of the diverticulum area around 35 cm from the anal verge had evidence of erythema and erosions suggesting resolving diverticulitis versus recent diverticular injury or bleed, but it was not bleeding at the time of examination. Retroflexion in the rectum revealed internal hemorrhoids. The air was withdrawn. The patient was currently monitored in the OR in stable condition. I discussed the findings with the patient's son by phone and all questions were answered. RECOMMENDATIONS: 1. The patient will need to be on omeprazole 40 mg daily for 3-6 months. 2. The patient is to be on Carafate 1 g every 6 hours for 4-6 weeks. 3. The patient will be on MiraLAX 17 g p.o. b.i.d. for now and adjust the dose based on response. 4. The patient is to follow gastroesophageal reflux life changes. Avoid excessive tea, coffee, soda, tomatoes, onions, spicy foods. The patient is to also avoid NSAIDs. The patient's ultrasound was reviewed which showed evidence of fatty liver changes which could have contributed to her early stage I esophageal varices. In that regard, we will recommend the patient to lose weight and follow serial ultrasounds every 6-12 months for follow up. We will also check a hepatitis panel. The patient will be continued on Iron-C 1 capsule b.i.d. for 3 months for anemia and Centrum Silver once daily. The patient will follow in the clinic 4 weeks after discharge. The above findings discussed with the patient's family and all questions were answered. [facility]
[2016-06-13] MEDS: CENTRUM SILVER PO SCH (15:33)
--- NOTE | 2016-06-13 17:15 | PROGRESS NOTE ---
DATE: 06/13/2016 SUBJECTIVE: Patient underwent EGD and colonoscopy. They found grade 1 esophageal varices in the esophagus, severe esophagitis, LA grade 4 distal esophagus. Z-line visualized at 38. Evidence of hiatal hernia 2 cm, mild erosive gastritis of the body and antrum, normal fundus, cardia and incisura, normal duodenal bulb second portion, normal terminal ileum. Stool throughout the colon. Fair prep. Lesions less than 5 mm could be missed. There is evidence of diverticulosis descending and sigmoid colon. The diverticulum had inflammation and erythema suggesting possible resolving diverticulitis, diverticular bleed. Internal hemorrhoids on retroflexion appreciated. Patient is comfortable. OBJECTIVE: Vital Signs: On exam, afebrile. Temp 98 degrees, pulse 70, respirations 16, blood pressure 147/75. HEENT: Pupils are equal, round, reactive. Oral and nasal mucosa unremarkable. CVP less than 6 cm. Lungs: Clear in all lung marie. Cardiovascular exam: Regular rhythm and rate without murmur or S3. : Good urine output. LABS: Lab reviewed from yesterday: Hematocrit stable at 35. Chemistries unremarkable, except for mild hypokalemia. Serum creatinine is 0.8. Pro time was down to 12.9. ASSESSMENT AND PLAN: 1. Some esophagitis. No evidence of ongoing bleeding lesion. Diverticulosis in the colon, and very well could have had a little irritation. Some bleeding there, but no sign of active bleeding. Continue proton pump inhibitor. Some Carafate. 2. Chronic atrial fibrillation. Rate controlled. 3. Cognitive decline. Aware. 4. Hypertension. 5. Urinary retention from rectal impaction, which I think is resolving if we can take the catheter out. We need to restart her Coumadin. She came in with an elevated pro time. Looking back at her dosing for Coumadin, it was 7.5 alternating with 5. So I am going to start her on 4 mg Coumadin and possibly she could be discharged tomorrow.
[2016-06-13] MEDS ORDERED: COUMADIN PO SCH (21:00)
[2016-06-13] MEDS: ELAVIL PO SCH (21:52)
[2016-06-14] MEDS: CARAFATE LIQUID PO SCH ×3 (03:05→13:45)
[2016-06-14 06:52] LABS: INR 1.01; PROTIME 10.7 Seconds (9.2-11.7)
[2016-06-14] MEDS: PREMARIN PO SCH (08:46)
[2016-06-14] MEDS: CENTRUM SILVER PO SCH (08:46)
[2016-06-14] MEDS: ICAR-C PLUS PO SCH (08:46)
[2016-06-14] MEDS: COZAAR PO SCH (08:46)
[2016-06-14] MEDS: NAMENDA XR PO SCH (08:46)
[2016-06-14] MEDS: TOPROL XL PO SCH (08:46)
[2016-06-14] MEDS: MAXZIDE 75/50 PO SCH (08:46)
[2016-06-14] MEDS: ARICEPT PO SCH (08:46)
[2016-06-14] MEDS: KLOR-CON PO SCH (08:46)
[2016-06-14] MEDS: SYNTHROID PO SCH (08:47)
[2016-06-14] MEDS: PROTONIX IV SCH (08:49)
[2016-06-14] MEDS: MIRALAX PO SCH (08:50)
[2016-06-14 10:39] LABS: HEPATITIS PROFILE ACUTE SEE COMMENTS (())
[2016-06-14] MEDS: NS 1,000 ML IV SCH (13:45)
[2016-06-14 14:00] VITALS: BP 135/59
--- NOTE | 2016-06-15 12:02 | DISCHARGE SUMMARY ---
ADMISSION DATE: 06/09/2016 DISCHARGE DATE: 06/14/2016 HOSPITAL COURSE: This is a 76-year-old patient, who presented with past medical history of chronic atrial fibrillation. She has had an ablation procedure. She had a median sternotomy scar, so I am not exactly sure what procedure they did. Had stomach surgery years ago which sounds like pyloroplasty and vagotomy, hypertension, hypercholesterolemia. She had some black stools and was concerned about bleeding. Her pro time was elevated from Coumadin toxicity. We did not see any drop in her hematocrit or hemoglobin, but did elect to hold her Coumadin, let her pro time come down, and then look at her colonoscopy and EGD. She had severe esophagitis. They found a few esophageal varices, but minor, no active bleeding, and they found diverticulosis with suspicion that there may have been a little area that had some irritation. She had no further bleeding. [place] we would keep her on Protonix, but thought she could go home. I restarted her Coumadin and that will be 5 mg at bedtime. She is instructed to get pro time checked every week. She will be on Maxzide half a tablet 75-50 daily, Carafate 1 g q. 6 hours will do for 4 weeks, Klor-Con 20 mEq b.i.d., MiraLAX 17 g p.o. b.i.d., Protonix 40 mg that she will take twice a day for 4 weeks and then once a day, Toprol-XL 50 mg a day, Centrum Silver 1 a day, Namenda 25 mg a day, Demadex XR 25 mg daily, losartan 50 mg a day, Synthroid 25 mg daily, Icar Plus 1 daily, Premarin 1.25 mg daily, Aricept 10 mg daily, Elavil 50 mg at bedtime. She is to follow up with primary care. She is instructed to get her pro time checked once a week for 4 weeks and then go to once a month. The goal is to get her pro time around 2, and she will follow up with Dr. Garsia in a couple weeks.
== END 2016-06-14 15:36 | disposition home or self-care (01) | DRG 378 ==
LOC: ED 09:48 → EDIPHOLD 14:16 → 4N 20:28
PROVIDERS: ATTEND Emergency Medicine
PROC: 0DJD8ZZ Inspection of Lower Intestinal Tract, Via Natural or Artificial Opening Endoscopic (ICD-10-PCS; principal; 2016-06-13 08:12)
PROC: 0DJ08ZZ Inspection of Upper Intestinal Tract, Via Natural or Artificial Opening Endoscopic (ICD-10-PCS; 2016-06-13 08:12)
DX: K57.33 Diverticulitis of large intestine without perforation or abscess with bleeding (principal); N39.0 Urinary tract infection, site not specified; I85.10 Secondary esophageal varices without bleeding; K76.0 Fatty (change of) liver, not elsewhere classified; I48.2 Chronic atrial fibrillation; G30.9 Alzheimer's disease, unspecified; F02.80 Dementia in other diseases classified elsewhere, unspecified severity, without behavioral disturbance, psychotic disturbance, mood disturbance, and anxiety; D50.0 Iron deficiency anemia secondary to blood loss (chronic); K56.41 Fecal impaction; R33.9 Retention of urine, unspecified; R79.1 Abnormal coagulation profile; K21.0 Gastro-esophageal reflux disease with esophagitis; K44.9 Diaphragmatic hernia without obstruction or gangrene; K29.60 Other gastritis without bleeding; K64.8 Other hemorrhoids; I10 Essential (primary) hypertension; E03.9 Hypothyroidism, unspecified; E78.00 Pure hypercholesterolemia, unspecified; M17.9 Osteoarthritis of knee, unspecified; E66.9 Obesity, unspecified; B96.20 Unspecified Escherichia coli [E. coli] as the cause of diseases classified elsewhere; Z79.899 Other long term (current) drug therapy; Z79.82 Long term (current) use of aspirin; Z87.891 Personal history of nicotine dependence; Z95.3 Presence of xenogenic heart valve; Z68.37 Body mass index [BMI] 37.0-37.9, adult
CPT/HCPCS: 36430; 71020; 74000; 74176; 76700; 80053; 80074; 81001; 82150; 82270; 82550; 83690; 83735; 83880; 84443; 84484; 85025; 85027; 85379; 85610; 85730; 86850; 86900; 86901; 86920; 87077; 87088; 87186; 87324; 89055; 93005; 96374; C9113; J3010; J3430; J7030; J7120; P9017; S0164